=== PATIENT | female | born 1945 ===

== ENCOUNTER 2017-02-03 07:51 | Day surgery (SDC) | payer MEDICARE ==
[2017-01-28 11:30] VITALS: BMI 27.3
[2017-02-03] MEDS ORDERED: Propofol 10 mg/ml Inj (20 ML) ONE (09:43)
[2017-02-03] MEDS ORDERED: Lactated Ringer's 500 ML IV SCH (10:00)
[2017-02-03 10:23] VITALS: TEMP 97.2
[2017-02-03 11:15] VITALS: BP 111/57; PULSE 57; RESP 12; O2SAT 98
== END 2017-02-03 11:10 | disposition home or self-care (01) ==
LOC: C.ENDO 07:51
PROVIDERS: ATTEND Internal Medicine Gastroenterology
DX: Z12.11 Encounter for screening for malignant neoplasm of colon (principal); D12.0 Benign neoplasm of cecum; K63.5 Polyp of colon; K64.1 Second degree hemorrhoids; E11.9 Type 2 diabetes mellitus without complications; I10 Essential (primary) hypertension; K59.01 Slow transit constipation; Z79.84 Long term (current) use of oral hypoglycemic drugs
CPT/HCPCS: 45380; 45385; 82948; 88305; J2704; J3010; J7120